=== PATIENT | female | born 1965 | race Two or more races ===

== ENCOUNTER 2018-10-10 16:57 | Emergency (ER) | payer SELFPAY ==
[~2018-10-10] VITALS: Ht 170.2 cm; Wt 77.1 kg
[2018-10-10 17:00] VITALS: BP 152/80
[2018-10-10 18:35] LABS: Urine Bacteria NONE SEEN /hpf (None Seen); Urine Blood Negative /uL (Negative); Urine Specific Gravity 1.002 (1.001-1.035); Urine WBC <1 /hpf (0 - 5)
[2018-10-10 18:59] LABS: Amphetamine Screen, Urine NEGATIVE (NEGATIVE); Barbiturate Scree,Urine NEGATIVE (NEGATIVE); Benzodiazephine Screen, Urine NEGATIVE (NEGATIVE); Cannabinoid Screen, Urine NEGATIVE (NEGATIVE); Cocaine Screen, Urine NEGATIVE (NEGATIVE); Opiate Scree,Urine NEGATIVE (NEGATIVE); Phencyclidine Screen, Urine NEGATIVE (NEGATIVE)
== END 2018-10-10 19:15 | disposition left against medical advice (07) ==
LOC: EDBD 16:57 → ER 16:57
DX: F10.920 Alcohol use, unspecified with intoxication, uncomplicated (principal); Z53.21 Procedure and treatment not carried out due to patient leaving prior to being seen by health care provider; Y90.0 Blood alcohol level of less than 20 mg/100 ml
CPT/HCPCS: 80307; 81001